=== PATIENT | male | born 1995 | race African-American/Black ===

== ENCOUNTER 2020-11-16 19:52 | Emergency (ER) | payer SELFPAY ==
[2020-11-16 19:53] VITALS: BP 151/56; PULSE 86; RESP 16; TEMP 36.6; O2SAT 100; BMI 20.9
--- NOTE | 2020-11-16 20:02 | DCINST.ED_ITS ---
ED Disposition - Plan for ED Patient: Instructions: ED Dental Pain Prescriptions: Naproxen [Naprosyn] 500 mg PO BID PRN #20 tab Transmission Status: Pending to [facility] Hydrocodone Bitart/Apap 5-325 [[place] 5MG-325MG] 1 tablet PO Q6H PRN PRN 2 Days #6 tablet PRN Reason: Pain Transmission Status: Sent to [facility] Penicillin V Potassium 500 mg PO 4X/DAY #40 tab Transmission Status: Pending to [facility]
--- NOTE | 2020-11-16 20:02 | ED.DEP ---
ED Disposition - Plan for ED Patient: Instructions: ED Dental Pain Prescriptions: Naproxen [Naprosyn] 500 mg PO BID PRN #20 tab Transmission Status: Pending to [facility] Hydrocodone Bitart/Apap 5-325 [[place] 5MG-325MG] 1 tablet PO Q6H PRN PRN 2 Days #6 tablet PRN Reason: Pain Transmission Status: Sent to [facility] Penicillin V Potassium 500 mg PO 4X/DAY #40 tab Transmission Status: Pending to [facility]
--- NOTE | 2020-11-16 20:09 | ED.VISSUMM ---
- ER Visit Summary Date of Service: 11/16/20 Chief Complaint: Dental pain History of Present Illness: The patient is a 25 M presenting with dental pain. Patient states this started yesterday. He complains of pain right lower molar. He denies fever or swelling. He does not currently have a dentist. He denies other complaints. Physical Examination: Vitals are stable. Patient is afebrile. Alert no acute distress. HEENT exam right lower molar tenderness to palpation, no surrounding fluctuance. No sublingual edema Neck is supple. Lungs are clear and equal bilaterally. Heart is regular rate and rhythm. Extremities are unremarkable. Skin is warm and dry. Remainder of exam is unremarkable. Emergency Department Course and Treatment: Patient was given [place], penicillin. He is given prescription for Naprosyn and penicillin. He is advised to follow-up with dentist. He is given a dental referral list. Advised return to the ED for worsening complaints. Disposition: Discharge home Impression: Odontalgia This note was generated with [employer] dictation software. It may contain incorrect words, spelling, and punctuation that were not noted in review of the chart prior to signing ED Disposition - Plan for ED Patient: Instructions: ED Dental Pain Prescriptions: Naproxen [Naprosyn] 500 mg PO BID PRN #20 tab Transmission Status: Sent to [facility] Hydrocodone Bitart/Apap 5-325 [[place] 5MG-325MG] 1 tab PO Q6H PRN PRN 2 Days #6 tab PRN Reason: Pain Transmission Status: Received by [facility] Penicillin V Potassium 500 mg PO 4X/DAY #40 tab Transmission Status: Sent to [facility]
[2020-11-16] MEDS: Penicillin Vk 250 MG Tablet 500 MG PO (20:10)
[2020-11-16] MEDS: HYDROcodone Bitartrate/Apap 5/325 Tablet PO (20:10)
== END 2020-11-16 20:31 | disposition home or self-care (01) ==
LOC: ED 20:28
PROVIDERS: Emergency Provider Emergency Medicine
DX: K08.89 Other specified disorders of teeth and supporting structures (principal); Z72.0 Tobacco use
CPT/HCPCS: 99283

== ENCOUNTER → 2023-01-09 | Outpatient (CLI) | payer SELFPAY ==
[2023-01-09 11:25] LABS: HIV - WCH Non-Reactive (Nonreactive); Hepatitis B Surface Antigen Non-Reactive (Nonreactive); Hepatitis C Antibody Non-Reactive (Nonreactive); Syphilis Antibodies Non-reactive
[2023-01-10 08:32] LABS: HSV 2 IgG < 0.91 index (0.00-0.90)
== END | disposition home or self-care (01) ==
LOC: LAB 09:57
PROVIDERS: Referring Provider Nurse Practitioner Women's Health; Visit Provider Nurse Practitioner Women's Health
DX: Z11.59 Encounter for screening for other viral diseases (principal)
CPT/HCPCS: 36415; 86695; 86696; 86703; 86780; 86803; 87340